=== PATIENT | male | born 1950 | race Two or more races ===

== ENCOUNTER 2020-10-06 06:03 | Day surgery (SDC) | payer BC ==
[~2020-10-06] VITALS: Ht 175.3 cm; Wt 79.8 kg
[~2020-10-06 06:03] MED LIST: AMLO-489 PO; GABA300C10 PO; INSUINJ37 SC; LANS30CA57 PO; LISI-716 PO; METF-371 PO; OXYC-904 PO; TAMS0.4C36 PO
[2020-10-06] MEDS ORDERED: SODIUM CHL 0.9% 0 ML ONE (08:09)
[2020-10-06] MEDS ORDERED: VERAPAMIL 2.5MG/ML INJ 2ML VIAL IV ONE (08:09)
[2020-10-06] MEDS ORDERED: ANGIOMAX 250 MG VIAL IV ONE (08:09)
[2020-10-06] MEDS ORDERED: fentaNYL CITRATE 100 MCG/2 ML VL ONE (08:09)
[2020-10-06] MEDS ORDERED: MIDAZOLAM HCL 2MG/2ML 2ml VIAL (1mg/ml) ONE (08:09)
[2020-10-06] MEDS ORDERED: LIDOCAINE 2%HCL (LOCAL ANESTH.) INJ 20ML MDV ONE (08:11)
[2020-10-06] MEDS ORDERED: HEPARIN SODIUM (PORCINE) 5000 UNITS/ML 1ML VIAL ONE (08:11)
[2020-10-06] MEDS ORDERED: IODIXANOL 320MG/ML 100ML BTL IV ONE (08:12)
[2020-10-06] MEDS ORDERED: oxyCODONE HCL 5MG TAB PO ONE (10:45)
== END 2020-10-06 11:35 | disposition home or self-care (01) ==
LOC: CATH 06:03
PROVIDERS: ATTEND Internal Medicine
DX: I25.118 Atherosclerotic heart disease of native coronary artery with other forms of angina pectoris (principal); R94.39 Abnormal result of other cardiovascular function study; I10 Essential (primary) hypertension; E78.5 Hyperlipidemia, unspecified; Z79.899 Other long term (current) drug therapy; Z20.822 Contact with and (suspected) exposure to COVID-19; Z98.890 Other specified postprocedural states
CPT/HCPCS: 93458; C1769; C1887; C1894; J1644; J2250; J3010; J7030; Q9967; U0003; 99152; 99153